=== PATIENT | male | born 1990 | race Caucasian/White ===

== ENCOUNTER 2019-06-09 00:17 | Day surgery (SDC) | payer OTHER, SELFPAY ==
[2019-06-08 23:17] VITALS: BP 141/79
[~2019-06-09] VITALS: Ht 170.2 cm; Wt 111.8 kg
[2019-06-09] VITALS (9 sets, daily range): BP systolic 68–128; BP diastolic 51–71
--- NOTE | 2019-06-09 00:12 | HPEPDOC ---
General Surgery H&P Date of Admission Jun 09, 2019 Attending Physician: VALENTINA LOPES MD History and Physical CHIEF COMPLAINT: abdominal pain, vomiting HISTORY OF PRESENT ILLNESS: Patient is a healthy 28-year-old male who is transferred to our institution from [facility] where he presented on June 08 with complaints of roughly a 2 to three-day history of abdominal pain nausea and vomiting and followed by low-grade fever. He reports that since the evening started not feeling well with crampy abdominal pain nausea and vomiting. This progressed through to the next day. He initially thought he had some stomach bug but since this did not go away, persisted and got worse he went to the emergency room for evaluation. He was initially seen at [facility]. He describes it as a 7 out of 10 pain. He was worked up and found to have mild leukocytosis. He has CT of the abdomen showing evidence for acute appendicitis and subsequently transferred to us for further management. ALLERGIES: Please see below. HOME MEDICATIONS: Please see below. PAST MEDICAL HISTORY: 1. Gastroesophageal reflux. PAST SURGICAL HISTORY: 1. None. PERSONAL/SOCIAL HISTORY: Denies smoking, alcohol use, or recreational drug use. REVIEW OF SYSTEMS: GENERAL: Patient reports subjective low-grade fever. With all pain nausea and vomiting 3 days. HEENT: Denies blurred vision and double vision. Denies ear symptoms. Denies hoarseness. NECK: Denies any neck pain. CARDIOVASCULAR: Denies chest pain and palpitations. MUSCULOSKELETAL: Denies arthralgias, back pain and thrombophlebitis. SKIN: Denies rash. NEUROLOGIC: Denies headache, stroke and transient ischemic attack. PSYCHIATRIC: Denies anxiety and depression. ENDOCRINE: Denies thyroid disease. HEMATOLOGY/ONCOLOGY: Denies any bleeding or clotting disorder. HEART: Denies any chest pains, palpitations, paroxysmal dyspnea, orthopnea. PULMONARY: Denies chronic cough, dyspnea and wheezing. GASTROINTESTINAL: See HPI. GENITOURINARY: Denies dysuria, frequency, hematuria and nocturia. ENDOCRINE: Denies polydipsia, polyphagia, polyuria, heat or cold intolerance. INFECTIOUS: Denies any recent upper respiratory tract infection, UTI, need for use of antibiotics. NUTRITION: Reports poor appetite 3 days. PHYSICAL EXAMINATION: VITAL SIGNS: Please see below. GENERAL APPEARANCE: Patient seen laying on the stretcher, clearly uncomfortable with his hands on his right lower quadrant area. Awake, alert, oriented. HEENT: Normocephalic, atraumatic. [place] palpebral conjunctivae. Anicteric sclerae. Lips dry. CHEST: We'll need of admission the patient. NECK: Supple. No thyromegaly. No lymphadenopathies. LUNGS: Lung sounds are clear to auscultation bilaterally. No wheezing appreciated. HEART: No chest wall abnormalities. Heart rate and rhythm are regular with no murmurs. ABDOMEN: Mildly obese abdomen, mildly distended. He is quite tender on palpation over the right lower quadrant area with moderate guarding. No surgical scars or umbilical or groin herniations appreciated.. SKIN: Warm and dry. EXTREMITIES: Extremities have no deformities. No edema identified. NEUROLOGICAL: . ANCILLARIES: . LABORATORY DATA: Please see below. Labs done at [facility] shows WBC of 11.4. Hemoglobin 15.8. Hematocrit 46.0. Platelet count 184. BUN of 22. Creatinine of 1.4. Sodium 139. Potassium 3.9. Chloride 101. CO2 27. Glucose 108. LFTs are normal. CRP of 195. Lactic acid of 1.2. MICROBIOLOGY: Please see below. IMAGING: CT of the abdomen and pelvis also done at [facility]. He shows findings compatible with acute appendicitis. A 9 mm appendicolith at the base of appendix with dilated fluid-filled appendix measuring up to approximately 14 mm with moderate periappendiceal stranding and small amount of free fluid. No evidence for obstruction or drainable collection or abscess. No free air. IMPRESSION AND PLAN: Patient with a three-day history of right lower quadrant pain and findings consistent with acute appendicitis. Patient is advised need for surgery. I discussed with him how a laparoscopic appendectomy is performed. Likewise discussed other options including nonoperati ve therapy. Standard care remains performance of appendectomy. He was advised of the risks and benefits of the procedure including risk for bleeding, perforation, abscess and infection and injury to nearby bowels. Patient due to consent for the surgery. Depending on the intraoperative findings and course, patient potentially would be able to go home later today. Vital Signs 125/63 Pulse rate 78 Risks are rate 16 Temperature 100.3 100% O2 sats on room air A-FIB/CHADSVASC A-FIB History Current/History of A-Fib/PAF?: No Current PO Anticoag Therapy: No VALENTINA LOPES MD Jun 09, 2019 00:12
[~2019-06-09 00:17] MED LIST: BUPIVACAINE HCL 0.25% 30 ML VIAL As Ordered ONE; KETOROLAC 60 MG/2 ML VIAL (J1885) As Ordered ONE; LIDOCAINE 1% SDV INJ 30 ML VIAL As Ordered ONE; LIDOCAINE 2% INJ 100 MG/5 ML SDV (FOR ANES.) As Ordered ONE; MIDAZOLAM INJ 2 MG/2 ML VIAL (J2250) As Ordered ONE; ONDANSETRON 4MG/2ML VIAL (J2405) As Ordered ONE; PROPOFOL 200 MG/20 ML VIAL As Ordered ONE; ROCURONIUM BROMIDE 50 MG/5 ML VIAL As Ordered ONE; dexameTHASONE 4 MG/ML 1ML VIAL (J1100) As Ordered ONE; fentaNYL 250 MCG/5 ML INJECTION (J3010) As Ordered ONE
[2019-06-09] MEDS ORDERED: ONDANSETRON 4MG/2ML VIAL (J2405) IV PRN ×2 (00:30→02:15)
[2019-06-09] MEDS ORDERED: MORPHINE 4 MG/ML 1ML VIAL/SYRINGE (J2270) IV PRN (00:30)
[2019-06-09] MEDS ORDERED: ACETAMINOPHEN 1000MG 100ML IV BTL (OFIRMEV) (J0131 PER 10MG) As Ordered ONE (00:52)
[2019-06-09] MEDS: ZOSYN 3.375 GM VIAL (J2543) As Ordered ONE ×2 (01:00→01:04)
[2019-06-09] MEDS ORDERED: ROCURONIUM BROMIDE 50 MG/5 ML VIAL As Ordered ONE (01:03)
[2019-06-09] MEDS ORDERED: SUGAMMADEX SODIUM 500 MG/5 ML VIAL (BRIDION) As Ordered ONE (01:06)
[2019-06-09] MEDS ORDERED: HYDROmorphone HCL 2 MG/ML 1ML VIAL (J1170) As Ordered ONE (01:21)
[2019-06-09] MEDS ORDERED: PERCOCET 5MG/325MG TAB PO PRN ×2 (02:15)
[2019-06-09] MEDS ORDERED: oxyCODONE 5MG TAB PO PRN (02:15)
[2019-06-09] MEDS ORDERED: LR 1,000 ML IV SCH (02:15)
[2019-06-09] MEDS ORDERED: fentaNYL 100 MCG/2 ML INJECTION (J3010) As Ordered ONE (02:17)
[2019-06-09] MEDS ORDERED: oxyCODONE 5MG TAB As Ordered ONE (02:18)
[2019-06-09] MEDS: fentaNYL 100 MCG/2 ML INJECTION (J3010) IV PRN ×2 (02:19→02:27)
[2019-06-09] MEDS: PIPERACILLIN/TAZOBACTAM SOD 3.375 GM in D5W MINI-BAG PLUS 50 ML IV SCH ×3 (06:09→18:18)
[2019-06-09] MEDS: KETOROLAC 30 MG/ML VIAL (J1885) IV SCH ×3 (06:09→18:19)
[2019-06-09 06:36] LABS: HEMATOCRIT 44.2 % (42.0-52.0); HEMOGLOBIN 14.8 g/dl (13.5-17.5); MEAN CORPUSCULAR HEMOGLOBIN 31.2 pg (27.0-33.0); MEAN CORPUSCULAR HGB CONC 33.5 g/dl (32.0-36.5); MEAN CORPUSCULAR VOLUME 93.1 fl (80.0-96.0); PLATELET COUNT, AUTOMATED 178 10^3/uL (150-450); RED BLOOD COUNT 4.75 10^6/uL (4.30-6.10); WHITE BLOOD COUNT 15.2 10^3/uL (4.0-10.0)
[2019-06-09 06:57] LABS: BLOOD UREA NITROGEN 20 MG/DL (7-18); CALCIUM LEVEL 8.7 MG/DL (8.5-10.1); CARBON DIOXIDE LEVEL 24 MEQ/L (21-32); CHLORIDE LEVEL 106 MEQ/L (98-107); CREATININE FOR GFR 1.24 MG/DL (0.70-1.30); GLOMERULAR FILTRATION RATE > 60.0 (>60); GLUCOSE, FASTING 126 MG/DL (70-100); POTASSIUM SERUM 4.5 MEQ/L (3.5-5.1); SODIUM LEVEL 137 MEQ/L (136-145)
[2019-06-09 07:18] LABS: ATYPICAL LYMPH 2 % (0-5); LYMPHOCYTES 7 % (16-44); MONOCYTES 2 % (0-5); NEUTROPHILS 78 % (28-66); PLATELET ESTIMATE NORMAL (NORMAL)
[2019-06-09 07:19] LABS: ANISOCYTOSIS 1+
--- NOTE | 2019-06-09 10:02 | IPN ---
DATE: 06/09/2019 The patient is status post laparoscopic appendectomy yesterday. He had a perforated appendix and still has an ileus after his operative intervention. Although he is tolerating some minimal liquids, he is not tolerating a significant amount. He has been afebrile and otherwise he has had good urine output, but from his standpoint really just has had some slow progression from overnight. He has had no nausea or vomiting and overall feels distended, but his abdominal pain is much better than it was prior to admission. Overall on his physical exam, he is presenting with an abdomen softly distended, mildly tender, without significant peritoneal signs. His Dhruv-Serrano drain is serosanguineous. His dressings are otherwise dry and intact. IMPRESSION AND PLAN: The patient is status post perforated appendicitis. He has a typical slow progression/resolution of his ileus associated with the significant infection present. At this point, I do feel that it is reasonable to keep him on a clear liquid diet and will advance him to a regular diet tomorrow morning and discontinue his Dhruv-Serrano tomorrow morning.
[2019-06-09] MEDS ORDERED: ACETAMINOPHEN TAB 650MG DOSE (2X325MG) PO PRN (18:45)
[2019-06-10] MEDS: KETOROLAC 30 MG/ML VIAL (J1885) IV SCH ×3 (00:23→13:02)
[2019-06-10] MEDS: PIPERACILLIN/TAZOBACTAM SOD 3.375 GM in D5W MINI-BAG PLUS 50 ML IV SCH ×3 (00:24→13:02)
[2019-06-10 06:00] VITALS: BP 96/45
[2019-06-10 06:18] LABS: HEMATOCRIT 40.5 % (42.0-52.0); HEMOGLOBIN 13.4 g/dl (13.5-17.5); MEAN CORPUSCULAR HEMOGLOBIN 30.5 pg (27.0-33.0); MEAN CORPUSCULAR HGB CONC 33.1 g/dl (32.0-36.5); MEAN CORPUSCULAR VOLUME 92.3 fl (80.0-96.0); PLATELET COUNT, AUTOMATED 183 10^3/uL (150-450); RED BLOOD COUNT 4.39 10^6/uL (4.30-6.10); WHITE BLOOD COUNT 10.9 10^3/uL (4.0-10.0)
[2019-06-10 06:38] LABS: LYMPHOCYTES 9 % (16-44); MONOCYTES 6 % (0-5); NEUTROPHILS 85 % (28-66)
[2019-06-10 06:40] LABS: PLATELET ESTIMATE NORMAL (NORMAL)
[2019-06-10 06:41] LABS: BLOOD UREA NITROGEN 27 MG/DL (7-18); CALCIUM LEVEL 8.8 MG/DL (8.5-10.1); CARBON DIOXIDE LEVEL 26 MEQ/L (21-32); CHLORIDE LEVEL 106 MEQ/L (98-107); CREATININE FOR GFR 1.08 MG/DL (0.70-1.30); GLOMERULAR FILTRATION RATE > 60.0 (>60); GLUCOSE, FASTING 105 MG/DL (70-100); POTASSIUM SERUM 3.8 MEQ/L (3.5-5.1); SODIUM LEVEL 139 MEQ/L (136-145)
[2019-06-10 14:00] VITALS: BP 115/58
[2019-06-10] MEDS ORDERED: AUGM875T28 PO (16:14)
[2019-06-10] MEDS ORDERED: PERCOCET PO (16:14)
== END 2019-06-10 17:10 | disposition home or self-care (01) ==
LOC: M SDC 00:17 → M MSPAV 00:18 → M SDC 06-10 17:10
PROVIDERS: ATTEND Surgery
DX: K35.890 Other acute appendicitis without perforation or gangrene (principal); K21.9 Gastro-esophageal reflux disease without esophagitis; D72.829 Elevated white blood cell count, unspecified
CPT/HCPCS: 36415; 44970; 80048; 85025; 87070; 87075; 87076; 87077; 87186; 87205; 88304; 96374; 96375; 96376; J0131; J1100; J1170; J1885; J2250; J2405; J2543; J3010

== ENCOUNTER → 2024-10-04 | Outpatient (REF) | payer OTHER ==
[~2024-10-04] MED LIST changes: +AUGM875T28 PO; -BUPIVACAINE HCL 0.25% 30 ML VIAL As Ordered ONE; -KETOROLAC 60 MG/2 ML VIAL (J1885) As Ordered ONE; -LIDOCAINE 1% SDV INJ 30 ML VIAL As Ordered ONE; -LIDOCAINE 2% INJ 100 MG/5 ML SDV (FOR ANES.) As Ordered ONE; -MIDAZOLAM INJ 2 MG/2 ML VIAL (J2250) As Ordered ONE; -ONDANSETRON 4MG/2ML VIAL (J2405) As Ordered ONE; +PERCOCET PO; -PROPOFOL 200 MG/20 ML VIAL As Ordered ONE; -ROCURONIUM BROMIDE 50 MG/5 ML VIAL As Ordered ONE; -dexameTHASONE 4 MG/ML 1ML VIAL (J1100) As Ordered ONE; -fentaNYL 250 MCG/5 ML INJECTION (J3010) As Ordered ONE
[2024-10-04 13:53] LABS: SEMEN APPEARANCE OPAQUE (OPAQUE); SEMEN VISCOSITY LIQUID (LIQUID); SEMEN VOLUME 4.3 ml (2.0-5.0); SPERM CONCENTRATION 139.5 M/ml (>=15.0); WBC CONCENTRATION <=1 M/ml (<=1 M/ml)
[2024-10-04 13:54] LABS: TOTAL PROGRESSIVE SPERM 170.3 M/Ejac.
== END ==
LOC: M LAB REF 13:32
PROVIDERS: ATTEND Obstetrics & Gynecology
DX: Z98.52 Vasectomy status (principal)